=== PATIENT | male | born 1935 | race Caucasian/White ===

== ENCOUNTER 2020-03-10 00:13 | Outpatient (CLI) | payer MEDICARE, SELFPAY ==
[2020-03-10 18:56] LABS: SARS-CoV-2 RNA PCR Negative
== END 2020-03-10 00:14 | disposition home or self-care (01) ==
LOC: ANHCOVIDDT 00:13
PROVIDERS: Visit Provider Urology
DX: Z01.818 Encounter for other preprocedural examination (principal); Z11.59 Encounter for screening for other viral diseases; C67.9 Malignant neoplasm of bladder, unspecified
CPT/HCPCS: 87635; C9803; U0003

== ENCOUNTER 2020-03-12 00:51 | Day surgery (SDC) | payer MEDICARE, SELFPAY ==
[2020-03-10 09:38] VITALS: BMI 19.7
[2020-03-12] VITALS (7 sets, daily range): BP systolic 103–149; BP diastolic 52–70; PULSE 50–67; RESP 12–18; TEMP 36.3–36.4; O2SAT 97–100
--- NOTE | 2020-03-12 07:16 | WPDHPUPDATE1 ---
History and Physical Update Update Date/Time: 03/12/20 07:16 History and Physical has been reviewed, including an updated exam of the patient. There are NO changes in the patient's condition. Risks, benefits, and alternatives have been discussed and questions answered. Patient agrees to proceed with procedure.
--- NOTE | 2020-03-12 08:00 | ECG_ITS ---
Measurements Intervals [place] Rate: 56 P: 68 OR: 157 QRS: 40 QRSD: 96 T: 20 QT: 429 QTc: 417 Interpretive Statements SINUS BRADYCARDIA VENTRICULAR PREMATURE COMPLEX INCOMPLETE RIGHT BUNDLE BRANCH BLOCK DELAYED PRECORDIAL R/S TRANSITION BORDERLINE ST ABNORMALITY- INFERIOR LEADS BASELINE ARTIFACT- I, II, AVR, V1, V4-V6 BORDERLINE ECG Electronically Signed On 03-12-2020 11:04:18 CDT by Joselito Wagner D.O.
--- NOTE | 2020-03-12 08:09 | P.PNAN_ITS ---
Anes - Initial Pre Proc Eval Procedure: Operation Date: 03/12/20 09:45 Proposed Procedures p Trans Urethral Resection Bladder Tumor - Sumit Dueñas MD Date/Time: 03/12/20 08:09 Surgeon: Sumit Dueñas MD Pre Op Diagnosis: Bladder Cancer Patient Data Age: 84 Gender: M Height: 1.83 m Weight: 66 kg Allergies Allergy/AdvReac Type Severity Reaction Status Date / Time No Known Allergies Allergy Verified 03/10/20 09:36 Home Medications Medication Instructions Recorded Confirmed Type finasteride 5 mg PO DAILY 03/10/20 03/10/20 History Patient hx anesthesia problems: none Family hx anesthesia problems: none [facility] Past Medical History Medical History (Updated 03/11/20 @ 09:42 by Aleksandar Munguia DO) Anxiety Bladder cancer Depression Anes - Eval Final PreProcedure Day of Procedure 03/12/20 08:09 Patient weight: thin Heart: regular rate and rhythm Lungs: clear to auscultation and normal air movement Airway: Mallampati scale class II Neurological: alert and oriented Last oral intake: >/= 8 hours ASA classification: III Emergent: no Anesthetic plan: proceed Anesthesia type and monitoring: general LMA and standard monitoring Informed Consent: The patient's anesthetic plan and its attendant risks and benefits were discussed with the patient/family/POA. Questions were solicited and answers provided to the satisfaction of the patient/family/POA.
[2020-03-12] MEDS: LACTATED RINGERS 1,000 ML 30 ML IV CONT (08:35)
[2020-03-12] MEDS: ceFAZolin 2 GM/D5W 50 ML 2 GM/50 ML BAG IVPB (09:15)
[2020-03-12] MEDS: LIDOCAINE HCL 2% GEL UROJET 10 ML PKG MUCOUS MEM (09:32)
--- NOTE | 2020-03-12 09:41 | PM.PROC ---
Procedure Note - Detailed Date of procedure: 03/12/20 Pre-op diagnosis: Bladder Cancer Post-op diagnosis: same Procedure performed: TURBT (medium, 3cm) Description of procedure: The patient was brought to the operative suite where he is prepped and draped in a routine sterile fashion while in the dorsal lithotomy position. This is done after the uneventful administration of systemic sedation. 2% Xylocaine jelly is introduced intraurethrally and allowed to stand for an appropriate period of time. A 24F resectoscope sheath was placed in the bladder and the bladder is circumferentially inspected carefully. 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 This area is resected in its entirety with an attempt made to include detrusor muscle for pathological evaluation of invasion. The resected area measures approximately 3cm. The base and periphery of this resected side is cauterized with a loop electrode. The bladder is emptied and the resectoscope was removed. The patient is taken to the recovery room having tolerated this procedure well. Anesthesia: GLMA Surgeon: Sumit Dueñas MD Estimated blood loss (mL): 0 Drains: No Packing: No Pathology: yes Complications: No immediate complications Condition: stable Disposition: PACU
== END 2020-03-12 11:35 | disposition home or self-care (01) ==
PROVIDERS: PCP Physician Assistant; Visit Provider Urology
PROC: 0TBB8ZZ Excision of Bladder, Via Natural or Artificial Opening Endoscopic (ICD-10-PCS; CPT 52235; principal; 2020-03-12 09:45)
DX: C67.8 Malignant neoplasm of overlapping sites of bladder (principal); N40.1 Benign prostatic hyperplasia with lower urinary tract symptoms; N13.8 Other obstructive and reflux uropathy; R00.1 Bradycardia, unspecified; I45.10 Unspecified right bundle-branch block; R94.31 Abnormal electrocardiogram [ECG] [EKG]
CPT/HCPCS: 52235; 88305; 88307; 93005; A9270; J0690; J2250; J2405; J2704; J3010; J7120

== ENCOUNTER 2020-06-23 03:09 | Outpatient (CLI) | payer MEDICARE, SELFPAY ==
[2020-06-23 18:16] LABS: SARS-CoV-2 RNA PCR Negative
== END 2020-06-23 03:10 | disposition home or self-care (01) ==
LOC: ANHCOVIDDT 03:09
PROVIDERS: Visit Provider Urology
DX: Z01.812 Encounter for preprocedural laboratory examination (principal); Z20.828 Contact with and (suspected) exposure to other viral communicable diseases
CPT/HCPCS: 87635; C9803; U0003

== ENCOUNTER 2020-06-25 04:24 | Day surgery (SDC) | payer MEDICARE, SELFPAY ==
[2020-06-19 14:50] VITALS: BMI 19.6
[2020-06-25] VITALS (9 sets, daily range): BP systolic 103–138; BP diastolic 55–76; PULSE 49–69; RESP 14–20; TEMP 36.1–36.4; O2SAT 97–100
--- NOTE | 2020-06-25 06:49 | WPDHPUPDATE1 ---
History and Physical Update Update Date/Time: 06/25/20 06:49 History and Physical has been reviewed, including an updated exam of the patient. There are NO changes in the patient's condition. Risks, benefits, and alternatives have been discussed and questions answered. Patient agrees to proceed with procedure.
[2020-06-25] MEDS: LACTATED RINGERS 1,000 ML 30 ML IV CONT ×2 (09:32→12:26)
--- NOTE | 2020-06-25 10:00 | WPDANESEPPF ---
Anes - Initial Pre Proc Eval Procedure: Operation Date: 06/25/20 11:15 Proposed Procedures p Trans Urethral Resection Bladder Tumor with Mitomycin C Instillation - Sumit Dueñas MD Date/Time: 06/25/20 10:00 Surgeon: Sumit Dueñas MD Pre Op Diagnosis: bladder CA Patient Data Age: 85 Gender: M Height: 6 ft Weight: 65.77 kg Allergies Allergy/AdvReac Type Severity Reaction Status Date / Time No Known Allergies Allergy Verified 06/19/20 14:42 Home Medications Medication Instructions Recorded Confirmed Type finasteride 5 mg PO QPM 03/10/20 06/19/20 History cholecalciferol (vitamin D3) 125 mcg PO DAILY 06/19/20 06/19/20 History levocetirizine [24HR Allergy 5 mg PO DAILY 06/19/20 06/19/20 History Relief] Patient hx anesthesia problems: none Family hx anesthesia problems: none [facility] Past Medical History Medical History Anxiety Bladder cancer Depression Social History Social History Smoking packs per day: 0.5 Smoking cigarettes per day: 10.0 Years smoked: 20 Smoking pack-years: 10.00 Smoking status: Current every day smoker Tobacco type: cigarettes, pipe and cigars Additional smoking assessment comments: SMOKES 2 SMALL CIGARS DAILY Living arrangements: with family Spiritual care concerns: No Anes - Eval Final PreProcedure Day of Procedure 06/25/20 10:00 Patient weight: normal Heart: regular rate and rhythm Lungs: clear to auscultation Airway: Mallampati scale class II Neurological: alert and oriented Last oral intake: >/= 8 hours ASA classification: III Emergent: no Anesthetic plan: proceed Anesthesia type and monitoring: general LMA and standard monitoring Informed Consent: The patient's anesthetic plan and its attendant risks and benefits were discussed with the patient/family/POA. Questions were solicited and answers provided to the satisfaction of the patient/family/POA.
[2020-06-25] MEDS: ceFAZolin 2 GM/D5W 50 ML 2 GM/50 ML BAG IVPB (10:50)
[2020-06-25] MEDS: LIDOCAINE HCL 2% GEL UROJET 10 ML PKG MUCOUS MEM (10:54)
--- NOTE | 2020-06-25 11:28 | PM.PROC ---
Procedure Note - Detailed Date of procedure: 06/25/20 Pre-op diagnosis: bladder CA Post-op diagnosis: other Procedure performed: TURBT Description of procedure: The patient was brought to the operative suite where he is prepped and draped in a routine sterile fashion while in the dorsal lithotomy position. This is done after the uneventful administration of systemic sedation. 2% Xylocaine jelly is introduced intraurethrally and allowed to stand for an appropriate period of time. A 24F resectoscope sheath was placed in the bladder and the bladder is circumferentially inspected carefully. 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 This area is resected in its entirety with an attempt made to include detrusor muscle for pathological evaluation of invasion. The base and periphery of this resected side is cauterized with a loop electrode. The bladder is emptied and the resectoscope was removed. The patient is taken to the recovery room having tolerated this procedure well. Anesthesia: GLMA Surgeon: Sumit Dueñas MD Estimated blood loss (mL): 0 Drains: No Packing: No Pathology: none sent Complications: No immediate complications Condition: stable Disposition: PACU
--- NOTE | 2020-06-25 11:31 | PM.PROC ---
Procedure Note - Detailed Date of procedure: 06/25/20 Pre-op diagnosis: bladder CA Post-op diagnosis: other Procedure performed: Mitocycin-C bladder instillation Description of procedure: With the patient in the supine position, a 16F Rollins catheter is placed using sterile technique. Using a protective facemask, gown and double layer of gloves Mitomycin 40mg in 100cc saline is administered through the catheter/into the bladder. The catheter is then plugged. Patient was instructed to lie supine x20min, then to roll both the left and right x20 min. each. Total dwell time will be 60 min., after which the bladder will be drained and catheter removed. Anesthesia: GLMA Surgeon: Sumit Dueñas MD Estimated blood loss (mL): 0 Drains: Yes (18F Rollins) Packing: No Pathology: yes Complications: No immediate complications Condition: stable Disposition: PACU
--- NOTE | 2020-06-25 11:54 | SUR.PHASEI ---
[address] IRVIN. PT LYING ON BACK.
--- NOTE | 2020-06-25 12:03 | SUR.PHASEI ---
1201 TURNED ONTO LT SIDE.
--- NOTE | 2020-06-25 12:30 | SUR.PHASEI ---
1221 PT TURNED ONTO RT SIDE.
== END 2020-06-25 13:58 | disposition home or self-care (01) ==
PROVIDERS: PCP Physician Assistant; Visit Provider Urology
PROC: 0TBB8ZZ Excision of Bladder, Via Natural or Artificial Opening Endoscopic (ICD-10-PCS; CPT 52235; principal; 2020-06-25 11:15)
DX: C67.2 Malignant neoplasm of lateral wall of bladder (principal); F41.8 Other specified anxiety disorders; F17.290 Nicotine dependence, other tobacco product, uncomplicated
CPT/HCPCS: 52235; 51720; 88305; A9270; J0690; J1100; J2405; J2704; J3010; J7120; J9280

== ENCOUNTER 2022-04-21 00:52 | Day surgery (SDC) | payer MEDICARE, SELFPAY ==
[2022-04-13 15:22] VITALS: BMI 19.7
--- NOTE | 2022-04-13 15:30 | PC.NURSE ---
Report to the Outpatient Waiting Room, entrance under the green pavilion located off [facility], at time __0700 on date __04/21/22 . OR Time: ___09 . - You and your visitor will be asked a series of questions to screen for COVID 19 for your protection. - Only one visitor is allowed at this time. - The patient visitor is requested to leave or wait in car when not with patient. - A mask is required within the hospital. Patients may have clear liquids (water, carbonated beverages, clear teas, apple juice) until 3 hours prior to surgery (0600 AM) with a maximum of 20 ounces. - No food from midnight until time of surgery - Infants may have breast milk until 4 hours before surgery, formula 6 hours prior to surgery. - Children will be allowed to drink immediately following surgery. If applicable, please bring a bottle or sippy cup to assist with drinking. Juice, water, soda, and popsicles are readily available. For infants on formula, please bring formula the day of surgery. Pacifiers are allowed. Take the following medications with a SIP of water the morning of surgery: N/A Medications to discontinue per physician N/A Date to take last dose Please no make-up, nail pashto, hairspray, perfume, deodorant, or body powder the day of surgery. No jewelry (including any body piercings) or valuables the day of surgery, leave them at home. Please take a shower or bath the night before, or the morning of, surgery with an antibacterial soap. Wear comfortable, loose fitting clothing. Children are encouraged to wear pajamas. - Jewelry must be removed prior to entering the operating room. Rings and piercings that are not removed may be cut off. - The hospital will not accept responsibility for valuables. - Please leave all valuables, including medications, at home the day of surgery. If you are going home after surgery, a licensed retail delivery driver must drive you home. - NO public transportation without another adult. - We recommend that an adult stay with you for 24 hours following discharge. - We also recommend that you do not drive, make important decision, drink alcoholic beverages, or take any drugs that were not prescribed by your health care provider for at least 24 hours after your discharge time. For Pediatric surgeries, we recommend two adults accompany the child home (only one inside the building at this time). Follow any additional instructions given to you from your surgeon. If you or anyone in your household have experienced Covid symptoms in the past week, please notify your surgeon or the nurse liaison at the phone number below for possible testing. Telephone instructions given to ___PT'S SPOUSE (ALBERTO) and asked if any additional questions and then verbalized understanding. Patient advised to call surgeon office or pre surgery nurse liaison [phone] if any additional questions.
--- NOTE | 2022-04-20 10:49 | P.PNAN_ITS ---
Anes - Initial Pre Proc Eval Procedure: Operation Date: 04/21/22 09:00 Proposed Procedures p Trans Urethral Resection Bladder Tumor with Gemcitabine Instillation - Sumit Dueñas MD Date/Time: 04/20/22 10:49 Surgeon: Sumit Dueñas MD Pre Op Diagnosis: Bladder Ca, BPH Patient Data Age: 86 Gender: M Height: 1.83 m Weight: 65.9 kg Allergies Allergy/AdvReac Type Severity Reaction Status Date / Time No Known Allergies Allergy Verified 04/21/22 07:23 Home Medications Medication Instructions Recorded Confirmed Type finasteride 5 mg tablet 5 mg PO QPM 03/10/20 04/13/22 History Patient hx anesthesia problems: none Family hx anesthesia problems: none Results Review: All pre-operative results and documents have been reviewed as part of the pre- operative evaluation. [facility] Past Medical History Medical History Anxiety Bladder cancer Depression Social History Social History Smoking packs per day: 0.5 Smoking cigarettes per day: 10.0 Years smoked: 22 Smoking pack-years: 11.00 Smoking status: Current every day smoker Tobacco type: cigarettes, pipe and cigars Additional smoking assessment comments: SPOUSE STATES PT QUIT CIGARETTS 1981, STILL SMOKES 2 SMALL CIGARS A DAY Alcohol intake: never Substance use: never Substance use type: does not use Living arrangements: with family Spiritual care concerns: No Anes - Eval Final PreProcedure Day of Procedure 04/20/22 10:49 Patient weight: normal Heart: regular rate and rhythm Lungs: clear to auscultation Airway: Mallampati scale class II Neurological: alert and oriented Last oral intake: >/= 8 hours ASA classification: III Emergent: no Anesthetic plan: proceed Anesthesia type and monitoring: general LMA and standard monitoring Results Review: All pre-operative results and documents have been reviewed as part of the pre- operative evaluation. Informed Consent: The patient's anesthetic plan and its attendant risks and benefits were discussed with the patient/family/POA. Questions were solicited and answers provided to the satisfaction of the patient/family/POA.
[2022-04-21] VITALS (11 sets, daily range): BP systolic 110–140; BP diastolic 45–74; PULSE 45–71; RESP 12–21; TEMP 36.1–36.4; O2SAT 96–100
--- NOTE | 2022-04-21 06:30 | WPDHPUPDATE1 ---
History and Physical Update Update Date/Time: 04/21/22 06:30 History and Physical has been reviewed, including an updated exam of the patient. There are NO changes in the patient's condition. Risks, benefits, and alternatives have been discussed and questions answered. Patient agrees to proceed with procedure.
[2022-04-21] MEDS: LACTATED RINGERS 1,000 ML 30 ML IV CONT (07:52)
[2022-04-21] MEDS: ceFAZolin 2 GM/D5W 50 ML 2 GM/50 ML BAG IVPB (09:11)
--- NOTE | 2022-04-21 09:41 | W.PM.PROC2 ---
Procedure Note - Detailed Date of Procedure 04/21/22 Pre-op Diagnosis Bladder Ca, BPH Post-op Diagnosis Same Procedure Performed TURBT (small, 2cm) Surgeon Sumit Dueñas MD Description of Procedure The patient was brought to the operative suite where he is prepped and draped in a routine sterile fashion while in the dorsal lithotomy position. This is done after the uneventful administration of a general LMA anesthetic. 2% Xylocaine jelly is introduced intraurethrally and allowed to stand for an appropriate period of time. A 24F resectoscope sheath was placed in the bladder and the bladder is circumferentially inspected carefully. He has a a single papillary lesion in the anterior midline and a cluster of 2 or 3 small ones in close proximity in the left lateral wall. These areas are resected in their entirety with an attempt made to include detrusor muscle for pathological evaluation of invasion. The base and periphery of this resected side is cauterized with a loop electrode. The bladder is emptied and the resectoscope was removed. The patient is taken to the recovery room having tolerated this procedure well. Drains Yes Packing Yes Pathology Yes Complications No immediate complications Condition Stable Disposition PACU
--- NOTE | 2022-04-21 09:44 | W.PM.PROC2 ---
Procedure Note - Detailed Date of Procedure 04/21/22 Pre-op Diagnosis Bladder Ca, BPH Post-op Diagnosis Same Procedure Performed Gemcitabine installation Surgeon Sumit Dueñas MD Anesthesia None Description of Procedure With the patient in the supine position, a 16F Rollins catheter is placed using sterile technique. Using a protective facemask, gown and double layer of gloves Gemcitabine 2gm in 100cc saline is administered through the catheter/into the bladder. The catheter is then plugged. Patient was instructed to lie supine x20min, then to roll both the left and right x20 min. each. Total dwell time will be 60 min., after which the bladder will be drained and catheter removed. Drains No Packing No Pathology Yes Complications No immediate complications Condition Stable
[2022-04-21] MEDS: SODIUM CHLORIDE 0.9% IV 23.7 ML, GEMCITABINE HCL 1,000 MG BLADDER ×2 (09:49→09:50)
[2022-04-21] MEDS: fentaNYL CITRATE INJ (*CRX) 100 MCG/2 ML VIAL 25 MCG IV PUSH ×2 (11:00→11:07)
--- NOTE | 2022-04-21 13:04 | SUR.PHASEI ---
AFTER INSTILLATION BY DR. IRVIN. PT POSITIONED ON BACK AND BOTH SIDE 20 MIN EACH.
== END 2022-04-21 12:41 | disposition home or self-care (01) ==
PROVIDERS: Visit Provider Urology
PROC: 0TBB8ZZ Excision of Bladder, Via Natural or Artificial Opening Endoscopic (ICD-10-PCS; CPT 52234; principal; 2022-04-21 09:00)
DX: C67.8 Malignant neoplasm of overlapping sites of bladder (principal); N40.1 Benign prostatic hyperplasia with lower urinary tract symptoms; R39.12 Poor urinary stream; F17.290 Nicotine dependence, other tobacco product, uncomplicated
CPT/HCPCS: 52234; 51720; 88305; J0690; J2370; J2704; J3010; J7120; J9201